=== PATIENT | female | born 1965 | race Caucasian/White ===

== ENCOUNTER → 2021-02-14 | Outpatient (CLI) | payer SELFPAY ==
--- NOTE | 2021-02-14 14:47 | Diagnostic Imaging Report ---
PROCEDURE: CT abdomen and pelvis without contrast. TECHNIQUE: Multiple contiguous axial images were obtained through the abdomen and pelvis without the use of intravenous contrast. Auto Exposure Controls were utilized during the CT exam to meet ALARA standards for radiation dose reduction. INDICATION: Ovarian mass. COMPARISON: No prior studies are available for comparison. FINDINGS: Imaging through the lung bases demonstrates an indeterminate 4 mm nodule in the subpleural location of the left lower lobe. The liver and gallbladder are unremarkable. Pancreas and spleen are unremarkable. No adrenal mass is detected. No renal calculi or hydronephrosis is detected. The aorta is nonaneurysmal. Bowel loops appear to be normal in caliber. No bowel obstruction is identified. There is a soft tissue mass-like density in the left adnexa, not well characterized due to absence of IV contrast. The soft tissue fullness measures approximately 4.0 x 3.6 cm. There appears to be some adjacent wall thickening involving the left lateral bladder wall, which does abut the mass. Right adnexa are unremarkable. The uterus is unremarkable. No free fluid is seen. Bony structures are unremarkable. IMPRESSION: Left adnexal mass, perhaps ovarian. Dedicated pelvic ultrasound would be recommended for further characterization. Consideration could be given to performance of the CT study with intravenous contrast as well. Dictated by: Dictated on workstation # [id number]
== END ==
LOC: RAD 12:45
PROVIDERS: ATTEND Pediatrics
DX: N83.8 Other noninflammatory disorders of ovary, fallopian tube and broad ligament (principal)
CPT/HCPCS: 74176

== ENCOUNTER → 2021-08-30 | Outpatient (CLI) | payer MEDICAID ==
[~2021-08-30] VITALS: Ht 162.6 cm; Wt 68.2 kg
[~2021-08-30] MED LIST: APIX5TAB PO; LISI1TAB46 PO
[2021-08-30 10:38] VITALS: BP 154/83
== END ==
LOC: SDC 10:03
PROVIDERS: ATTEND Pediatrics
DX: Z45.2 Encounter for adjustment and management of vascular access device (principal); Z95.828 Presence of other vascular implants and grafts
CPT/HCPCS: 96523

== ENCOUNTER → 2022-05-29 | Outpatient (CLI) | payer MEDICAID ==
--- NOTE | 2022-05-29 15:06 | Diagnostic Imaging Report ---
INDICATION: Cervical carcinoma. TECHNIQUE: Patient was administered 26.4 mCi technetium-99m MDP intravenously, and whole-body imaging was performed after a three-hour delay. No prior bone scans are available for comparison. FINDINGS: There is normal uptake of activity by the axial and appendicular skeleton. There is uptake by the kidneys with excretion into the urinary bladder. No suspicious foci are identified to suggest osseous metastatic disease. There is some mild uptake in the region of the greater trochanter on the right, which could be inflammatory, perhaps owing to trochanteric bursitis. No other abnormal foci are seen. IMPRESSION: No scintigraphic evidence of osseous metastatic disease. Dictated by: Dictated on workstation # [id number]
== END ==
LOC: CARD 11:00
PROVIDERS: ATTEND Internal Medicine Hematology & Oncology
DX: C53.9 Malignant neoplasm of cervix uteri, unspecified (principal); C78.6 Secondary malignant neoplasm of retroperitoneum and peritoneum
CPT/HCPCS: 78306

== ENCOUNTER 2022-07-19 15:22 | Observation (INO) | payer MEDICAID ==
[~2022-07-19] VITALS: Ht 162.5 cm; Wt 69.4 kg
[2022-07-19] MEDS ORDERED: LACTATED RINGERS 1,000 ML IV STA (16:00)
--- NOTE | 2022-07-19 16:07 | ED General ---
General Chief Complaint: General Problems/Pain Stated Complaint: SYNCOPAL EPISODE/CONSTIPATION/CONFUSION/FATIGUE Source of Information: Patient Exam Limitations: No Limitations History of Present Illness Date Seen by Provider: Jul 19, 2022 Time Seen by Provider: 15:44 Initial Comments Here with report of syncopal or near syncopal episode couple days ago but has persistent weakness/fatigue. She is currently undergoing maintenance chemotherapy for metastatic cervical cancer that seems to be responding well. She reports that she had a diarrheal illness last week as well as been dealing w ith an upper respiratory infection for a few weeks and has nasal congestion. She also reports ear fullness. Denies fever or chills. She was seen with primary care provider who did UA and there evaluating for urinary tract infection. She denies urinary tract symptoms currently. She is okay when sitting down but feels a little weaker when she stands up and believes she may be dehydrated. The episode the other day was noted during eating lunch and she did have abdominal cramping at the time and was beginning to get pale. They elected to go to the car and when she was transferring from that car to another, she started seeing spots and they later to the ground. She did not hit her head and did not have any injuries. She was much better after laying on the ground for a few minutes. She has been trying to drink fluids and feels like she may be getting caught up but then she also states that she feels behind on fluids and again is worried about dehydration. Timing/Duration: 3-4 Days Severity: Mild, Moderate Associated Systoms: No Chest Pain, No Cough, No Fever/Chills, No Nausea/Vomiting, No Shortness of Air; Syncope, Weakness Allergies and Home Medications Allergies Coded Allergies: No Known Drug Allergies (Unverified , 08/30/21) Patient Home Medication List Home Medication List Reviewed: Yes Apixaban (Eliquis) 5 Mg Tablet, 5 MG PO BID, (Reported) Entered as Reported by: HENRIQUE BELTRAN on 08/30/211720 Lisinopril/Hydrochlorothiazide (Lisinopril-Hctz 20-12.5 mg Tab) 20 Mg-12.5 Mg Tablet, 1 EACH PO DAILY, (Reported) Entered as Reported by: HENRIQUE BELTRAN on 08/30/211720 Review of Systems Review of Systems Constitutional: see HPI; No chills, No fever; weakness EENTM: ear pain (Fullness bilateral), nose congestion Respiratory: no symptoms reported Cardiovascular: see HPI Gastrointestinal: constipation, diarrhea Genitourinary: no symptoms reported Psychiatric/Neurological: See HPI; Denies Headache Past Fvbavmc-Dpgnbd-Okmtsx Hx Patient Social History Tobacco Use?: No Substance use?: No Alcohol Use?: No Past Medical History Cardiac: Yes Hypertension Cancer: Yes Cervical What Type of Treatment Did You: Chemotherapy, Radiation Physical Exam Vital Signs Vital Signs - First Documented 07/19/22 15:33 Pulse 97 B/P (MAP) 138/78 (98) Pulse Ox 100 O2 Delivery Room Air Capillary Refill : Height, Weight, BMI Height: '" Weight: lbs. oz. kg; BMI Method: General Appearance: No Apparent Distress, WD/WN HEENT: Pharynx Normal, TM Abnormal (L) (TM bulging without erythema or opacity), TM Abnormal (R) (TM bulging without erythema or opacity) Respiratory: Lungs Clear, Normal Breath Sounds Cardiovascular: No Murmur, Tachycardia Gastrointestinal: Non Tender, Soft Back: Normal Inspection, No CVA Tenderness, No Vertebral Tenderness Extremity: Non Tender, No Calf Tenderness, No Pedal Edema Neurologic/Psychiatric: Alert, Oriented x3 Progress/Results/Core Measures Suspected Sepsis SIRS Temperature: Pulse: Respiratory Rate: Laboratory Tests 07/19/22 16:14: White Blood Count 4.4 Blood Pressure / Mean: Laboratory Tests 07/19/22 16:14: Creatinine 0.80, Platelet Count 242, Total Bilirubin 0.5 Results/Orders Lab Results Laboratory Tests Test 07/19/22 16:14 Range/Units White Blood Count 4.4 4.3-11.0 10^3/uL Red Blood Count 3.15 L 3.80-5.11 10^6/uL Hemoglobin 10.3 L 11.5-16.0 g/dL Hematocrit 29 L 35-52 % Mean Corpuscular Volume 91 80-99 fL Mean Corpuscular Hemoglobin 33 25-34 pg Mean Corpuscular Hemoglobin Concent 36 32-36 g/dL Red Cell Distribution Width 14.2 10.0-14.5 % Platelet Count 242 130-400 10^3/uL Mean Platelet Volume 9.7 9.0-12.2 fL Immature Granulocyte % (Auto) 1 % Neutrophils (%) (Auto) 59 42-75 % Lymphocytes (%) (Auto) 19 12-44 % Monocytes (%) (Auto) 16 H 0-12 % Eosinophils (%) (Auto) 5 0-10 % Basophils (%) (Auto) 1 0-10 % Neutrophils # (Auto) 2.6 1.8-7.8 10^3/uL Lymphocytes # (Auto) 0.9 L 1.0-4.0 10^3/uL Monocytes # (Auto) 0.7 0.0-1.0 10^3/uL Eosinophils # (Auto) 0.2 0.0-0.3 10^3/uL Basophils # (Auto) 0.0 0.0-0.1 10^3/uL Immature Granulocyte # (Auto) 0.0 0.0-0.1 10^3/uL Sodium Level 121 *L 135-145 MMOL/L Potassium Level 3.4 L 3.6-5.0 MMOL/L Chloride Level 86 L 98-107 MMOL/L Carbon Dioxide Level 25 21-32 MMOL/L Anion Gap 10 5-14 MMOL/L Blood Urea Nitrogen 6 L 7-18 MG/DL Creatinine 0.80 0.60-1.30 MG/DL Estimat Glomerular Filtration Rate 86 BUN/Creatinine Ratio 8 Glucose Level 91 70-105 MG/DL Calcium Level 9.5 8.5-10.1 MG/DL Corrected Calcium 9.7 8.5-10.1 MG/DL Total Bilirubin 0.5 0.1-1.0 MG/DL Aspartate Amino Transf (AST/SGOT) 30 5-34 U/L Alanine Aminotransferase (ALT/SGPT) 23 0-55 U/L Alkaline Phosphatase 80 40-136 U/L C-Reactive Protein High Sensitivity 1.96 H 0.00-0.50 MG/DL Total Protein 6.3 L 6.4-8.2 GM/DL Albumin 3.8 3.2-4.5 GM/DL My Orders Orders - DELBERT JOSE MD Lactated Ringers (Lr 1000 Ml Iv Solution (07/19/22 16:00) Ed Iv/Invasive Line Start (07/19/22 16:00) Cbc With Automated Diff (07/19/22 16:00) Comprehensive Metabolic Panel (07/19/22 16:00) Hs C Reactive Protein (07/19/22 16:00) Vital Signs/I&O 07/19/22 15:33 Pulse 97 B/P (MAP) 138/78 (98) Pulse Ox 100 O2 Delivery Room Air Capillary Refill : Progress Note : Progress Note Seen and evaluated. IV via port access. We will check basic labs including CBC, CMP and CRP. LR 1 L bolus. Monitor patient. Differential includes electrolyte abnormality, dehydration 1637: CBC results noted. White count is 4.4 with hemoglobin of 10.3 and normal platelets. ANC is 2.6. Chemistry shows sodium of 121 and potassium of 3.4 with chloride of 86. BUN and creatinine are normal. Glucose is normal. LFTs are normal. CRP is slightly elevated at 1.96. She is feeling better after the liter of LR but I do have concerns about the very low sodium and chloride. She does admit to drinking a fair amount of free water and has been trying to do salt supplements. She has had hyponatremia during her therapy and and I have encouraged her to drink electrolyte containing fluids. She is also on hydrochlorothiazide. Given all of this, patient is complicated and will need monitoring. I did discuss the case with Dr. Ibarra at 1713. She accepts patient for admission, observation status for the [facility] hospitalist team. Discussed with patient and family who agree with plan. Departure Communication (Admissions) Time/Spoke to Admitting Phy: 17:13 Impression Primary Impression: Hyponatremia Disposition: ADMITTED INPATIENT Condition: Stable Admissions Decision to Admit Reason: Admit from ER (General) Decision to Admit/Date: Jul 19, 2022 Time/Decision to Admit Time: 17:13 Departure-Patient Inst. Referrals: HONEY BENJAMIN DO (PCP/Family) Primary Care Physician Add. Discharge Instructions: All discharge instructions reviewed with patient and/or family. Voiced understanding. DELBERT JOSE MD Jul 19, 2022 16:07
[2022-07-19 16:21] LABS: BASOPHILS % (AUTO) 1 % (0-10); EOSINOPHILS # (AUTO) 0.2 10^3/uL (0.0-0.3); EOSINOPHILS % (AUTO) 5 % (0-10); HEMATOCRIT 29 % (35-52); HEMOGLOBIN 10.3 g/dL (11.5-16.0); LYMPHOCYTES # (AUTO) 0.9 10^3/uL (1.0-4.0); LYMPHOCYTES % (AUTO) 19 % (12-44); MEAN CORPUSCULAR HEMOGLOBIN 33 pg (25-34); MEAN CORPUSCULAR HGB CONC 36 g/dL (32-36); MEAN CORPUSCULAR VOLUME 91 fL (80-99); MEAN PLATELET VOLUME 9.7 fL (9.0-12.2); MONOCYTES # (AUTO) 0.7 10^3/uL (0.0-1.0); MONOCYTES % (AUTO) 16 % (0-12); NEUTROPHILS # (AUTO) 2.6 10^3/uL (1.8-7.8); NEUTROPHILS % (AUTO) 59 % (42-75); PLATELET COUNT 242 10^3/uL (130-400); WHITE BLOOD COUNT 4.4 10^3/uL (4.3-11.0)
[2022-07-19 16:31] LABS: ALBUMIN 3.8 GM/DL (3.2-4.5); POTASSIUM 3.4 MMOL/L (3.6-5.0)
[2022-07-19 16:32] LABS: CALCIUM 9.5 MG/DL (8.5-10.1)
[2022-07-19 16:33] LABS: TOTAL PROTEIN 6.3 GM/DL (6.4-8.2)
[2022-07-19 16:35] LABS: BILIRUBIN,TOTAL 0.5 MG/DL (0.1-1.0)
[2022-07-19 16:37] LABS: CREATININE SERUM 0.8 MG/DL (0.60-1.30)
[2022-07-19] MEDS ORDERED: BISACODYL 10 MG SUPP (DULCOLAX) PR PRN (18:00)
[2022-07-19] MEDS ORDERED: ANTACID SUSP 30 ML UDC (MYLANTA) PO PRN (18:00)
[2022-07-19] MEDS ORDERED: MILK OF MAGNESIA 400 MG/5 ML 30 ML UDC PO PRN (18:00)
[2022-07-19] MEDS ORDERED: HYDROmorphone 2 MG/ML VIAL (DILAUDID) IV PRN (18:00)
[2022-07-19] MEDS ORDERED: diphenhydrAMINE 25 MG TAB (BENADRYL) PO PRN (18:00)
[2022-07-19] MEDS ORDERED: ONDANSETRON 4 MG/2 ML (SDV) Z0FRAN IV PRN (18:00)
[2022-07-19] MEDS ORDERED: LACTULOSE SYRUP 10GM/15ML (ENULOSE) 30ML UDC PO PRN (18:00)
[2022-07-19] MEDS ORDERED: MELATONIN 3 MG TABLET PO PRN (18:00)
[2022-07-19] MEDS ORDERED: diphenhydrAMINE 50 MG/ML INJ (BENADRYL) IVP PRN (18:00)
[2022-07-19] MEDS ORDERED: polyethylene glycoL POWDER 17 GM (MIRALAX) PACK PO PRN (18:00)
[2022-07-19] MEDS ORDERED: ACETAMINOPHEN 325 MG TABLET PO PRN (18:00)
[2022-07-19] MEDS ORDERED: CALCIUM CARBONATE 500 MG (TUMS) TAB.CHEW PO PRN (18:00)
[2022-07-19] MEDS ORDERED: ONDANSETRON 4 MG (ZOFRAN) ORAL DISSOLVE TAB PO PRN (18:00)
[2022-07-19 18:02] VITALS: BP 148/78
[2022-07-19] MEDS: NS IV 1000 ML 1,000 ML IV SCH (18:27)
--- NOTE | 2022-07-19 18:32 | History & Physical ---
History of Present Illness HPI/Chief Complaint CC: Hyponatremia HPI: This is a 56[facility]WF clinic patient of [facility] who presented to the ER with weakness and found to have hyponatremia of 121. HCTZ is on her home med list. Patient will be fluid restricted and NS IVF given and salt tablets started. She is a uterine cancer patient with mets. Source: patient Exam Limitations: no limitations Date Seen 07/19/22 Time Seen by a Provider: 19:00 Attending Physician Acosta Dugan DO PCP Admitting Physician: Joi Ibarra DO Attending Physician: Joi Ibarra DO Referring Physician Date of Admission Jul 19, 2022 at 17:42 Home Medications & Allergies Home Medications Reviewed patient Home Medication Reconciliation performed by pharmacy medication reconciliations refractory technician and/or nursing. Patients Allergies have been reviewed. Allergies Allergies Coded Allergies No Known Drug Allergies (Unverified08/30/21) Past Mkmowsu-Fbuzuf-Neobjg Hx Past Med/Social Hx: Reviewed Nursing Past Med/Soc Hx, Reviewed and Corrections made Patient Social History Marrital Status: single Employed/Student: unemployed Smoking Status: Light Tobacco Smoker Recent Foreign Travel: No Contact w/other who traveled: No Past Medical History Cardiac: Hypertension Cancer: Cervical What Type of Treatment Did You: Chemotherapy, Radiation Review of Systems Constitutional: see HPI, malaise, weakness Physical Exam Physical Exam Vital Signs Vital Signs - First Documented 07/19/22 07/19/22 15:33 18:02 Temp 36.1 Pulse 97 Resp 16 B/P (MAP) 138/78 (98) Pulse Ox 100 O2 Delivery Room Air Capillary Refill : Height, Weight, BMI Height: '" Weight: lbs. oz. kg; 26.28 BMI Method: General Appearance: No Apparent Distress, WD/WN, Chronically ill HEENT: Pharynx Normal, TM Abnormal (L) (TM bulging without erythema or opacity), TM Abnormal (R) (TM bulging without erythema or opacity) Respiratory: Lungs Clear, Normal Breath Sounds Cardiovascular: No Murmur, Tachycardia Gastrointestinal: Non Tender, Soft Back: Normal Inspection, No CVA Tenderness, No Vertebral Tenderness Extremity: Non Tender, No Calf Tenderness, No Pedal Edema Neurologic/Psychiatric: Alert, Oriented x3 Results Results/Procedures Labs Laboratory Tests 07/19/22 16:14 Patient resulted labs reviewed. Assessment/Plan Admission Diagnosis Assessment: Hyponatremia Uterine cancer with mets Smoker HTN Plan: Hold HCTZ IVF Fluid restrict Admission Status: Observation JOI IBARRA DO Jul 19, 2022 18:32
[2022-07-19] MEDS ORDERED: BENZOCAINE LOZENGES 1 EACH LOZENGE PO PRN (18:45)
[2022-07-19] MEDS: SENNOSIDES 8.6 MG (SENOKOT) TAB PO SCH (19:29)
[2022-07-19] MEDS: DOCUSATE SODIUM 100 MG (COLACE) CAP PO SCH (19:29)
[2022-07-19] MEDS: APIXABAN 5 MG (ELIQUIS) TABLET PO SCH (19:29)
[2022-07-19 19:59] VITALS: BP 147/77
[2022-07-19] MEDS ORDERED: RT-ALBUTEROL SULF 2.5 MG/3 ML PRE-MIX VIAL INH PRN ×2 (20:15→21:00)
[2022-07-19] MEDS ORDERED: GABAPENTIN 600 MG (NEURONTIN) TAB PO SCH (21:00)
[2022-07-19] MEDS: SODIUM CHLORIDE 1 GM TABLET PO SCH (21:14)
[2022-07-19] MEDS: BENZOCAINE LOZENGES 1 EACH LOZENGE PO PRN (22:26)
[2022-07-19 23:45] VITALS: BP 144/83
[2022-07-20 03:34] VITALS: BP 107/67
[2022-07-20] MEDS: BENZOCAINE LOZENGES 1 EACH LOZENGE PO PRN ×2 (03:38→10:01)
[2022-07-20 05:57] LABS: BASOPHILS % (AUTO) 0 % (0-10); EOSINOPHILS # (AUTO) 0.1 10^3/uL (0.0-0.3); EOSINOPHILS % (AUTO) 4 % (0-10); HEMATOCRIT 26 % (35-52); HEMOGLOBIN 9.1 g/dL (11.5-16.0); LYMPHOCYTES # (AUTO) 0.8 10^3/uL (1.0-4.0); LYMPHOCYTES % (AUTO) 27 % (12-44); MEAN CORPUSCULAR HEMOGLOBIN 32 pg (25-34); MEAN CORPUSCULAR HGB CONC 35 g/dL (32-36); MEAN CORPUSCULAR VOLUME 92 fL (80-99); MEAN PLATELET VOLUME 9.9 fL (9.0-12.2); MONOCYTES # (AUTO) 0.5 10^3/uL (0.0-1.0); MONOCYTES % (AUTO) 17 % (0-12); NEUTROPHILS # (AUTO) 1.6 10^3/uL (1.8-7.8); NEUTROPHILS % (AUTO) 51 % (42-75); PLATELET COUNT 232 10^3/uL (130-400); WHITE BLOOD COUNT 3.1 10^3/uL (4.3-11.0)
[2022-07-20 06:31] LABS: ALBUMIN 3.2 GM/DL (3.2-4.5); BILIRUBIN,TOTAL 0.5 MG/DL (0.1-1.0); CREATININE SERUM 0.73 MG/DL (0.60-1.30); POTASSIUM 3.3 MMOL/L (3.6-5.0); TOTAL PROTEIN 5.3 GM/DL (6.4-8.2)
[2022-07-20] MEDS: NS IV 1000 ML 1,000 ML IV SCH (07:20)
[2022-07-20 08:03] VITALS: BP 109/66
[2022-07-20] MEDS ORDERED: GABAPENTIN 300 MG (NEURONTIN) CAP PO SCH (09:00)
[2022-07-20] MEDS: SENNOSIDES 8.6 MG (SENOKOT) TAB PO SCH (09:53)
[2022-07-20] MEDS: SODIUM CHLORIDE 1 GM TABLET PO SCH (09:53)
[2022-07-20] MEDS: DOCUSATE SODIUM 100 MG (COLACE) CAP PO SCH (09:53)
[2022-07-20] MEDS: APIXABAN 5 MG (ELIQUIS) TABLET PO SCH (09:53)
--- NOTE | 2022-07-20 10:12 | Progress Note ---
Subjective Date Seen by a Provider: Jul 20, 2022 Time Seen by a Provider: 11:00 Objective Exam Last Set of Vital Signs Vital Signs Date Time Temp Pulse Resp B/P (MAP) Pulse Ox O2 Delivery O2 Flow Rate FiO2 07/20/22 08:03 36.9 86 18 109/66 (80) Room Air 07/20/22 03:34 96 Capillary Refill : I&O Intake and Output 07/20/22 00:00 Intake Total 1200 ml Balance 1200 ml Intake Oral 200 ml IV Total 1000 ml # Voids 1 Daily Weight Change No Results Lab Laboratory Tests 07/19/22 16:14: White Blood Count 4.4, Red Blood Count 3.15L, Hemoglobin 10.3L, Hematocrit 29L, Mean Corpuscular Volume 91, Mean Corpuscular Hemoglobin 33, Mean Corpuscular Hemoglobin Concent 36, Red Cell Distribution Width 14.2, Platelet Count 242, Mean Platelet Volume 9.7, Immature Granulocyte % (Auto) 1, Neutrophils (%) (Auto) 59, Lymphocytes (%) (Auto) 19, Monocytes (%) (Auto) 16H, Eosinophils (%) (Auto) 5, Basophils (%) (Auto) 1, Neutrophils # (Auto) 2.6, Lymphocytes # (Auto) 0.9L, Monocytes # (Auto) 0.7, Eosinophils # (Auto) 0.2, Basophils # (Auto) 0.0, Immature Granulocyte # (Auto) 0.0, Sodium Level 121*L, Potassium Level 3.4L, Chloride Level 86L, Carbon Dioxide Level 25, Anion Gap 10, Blood Urea Nitrogen 6L, Creatinine 0.80, Estimat Glomerular Filtration Rate 86, BUN/Creatinine Ratio 8, Glucose Level 91, Calcium Level 9.5, Corrected Calcium 9.7, Total Bilirubin 0.5, Aspartate Amino Transf (AST/SGOT) 30, Alanine Aminotransferase (ALT/SGPT) 23, Alkaline Phosphatase 80, C-Reactive Protein High Sensitivity 1.96H, Total Protein 6.3L, Albumin 3.8 07/20/22 05:25: White Blood Count 3.1L, Red Blood Count 2.82L, Hemoglobin 9.1L, Hematocrit 26L, Mean Corpuscular Volume 92, Mean Corpuscular Hemoglobin 32, Mean Corpuscular Hemoglobin Concent 35, Red Cell Distribution Width 13.8, Platelet Count 232, Mean Platelet Volume 9.9, Immature Granulocyte % (Auto) 1, Neutrophils (%) (Auto) 51, Lymphocytes (%) (Auto) 27, Monocytes (%) (Auto) 17H, Eosinophils (%) (Auto) 4, Basophils (%) (Auto) 0, Neutrophils # (Auto) 1.6L, Lymphocytes # (Auto) 0.8L, Monocytes # (Auto) 0.5, Eosinophils # (Auto) 0.1, Basophils # (Auto) 0.0, Immature Granulocyte # (Auto) 0.0 07/20/22 06:14: Sodium Level 123*L, Potassium Level 3.3L, Chloride Level 91L, Carbon Dioxide Level 21, Anion Gap 11, Blood Urea Nitrogen 6L, Creatinine 0.73, Estimat Glomerular Filtration Rate 96, BUN/Creatinine Ratio 8, Glucose Level 92, Calcium Level 9.0, Corrected Calcium 9.6, Total Bilirubin 0.5, Aspartate Amino Transf (AST/SGOT) 29, Alanine Aminotransferase (ALT/SGPT) 17, Alkaline Phosphatase 78, Total Protein 5.3L, Albumin 3.2 Assessment/Plan Assessment/Plan Assess & Plan/Chief Complaint Hyponatremia -likely salt loss from recent hx of diarrheal illness -121 admit, 123 today -continue with fluid restriction -encourage food intake - Uterine cancer with mets -on chemo, radiation Tobacco use -encourage cessation HTN -Hold HCTZ, diuretics JACI GRAVES 10, 2023 10:11
--- NOTE | 2022-07-20 10:52 | Physical Therapy Evaluation ---
PT Evaluation-General Medical Diagnosis Admission Date Jul 19, 2022 at 17:42 Medical Diagnosis: hyponatremia Onset Date: Jul 19, 2022 Therapy Diagnosis Therapy Diagnosis: generalized weakness/debility Precautions Precautions/Isolations: Fall Prevention, Standard Precautions Referral Physician: Stacey Reason for Referral: Evaluation/Treatment Medical History Pertinent Medical History: HTN, Smoking Additional Medical History metastatic cervical cancer Current History ER secondary to syncope, fatigue and constipation Reviewed History: Yes Social History Home: Single Level Current Living Status: Alone Entry Into Home: Stairs With Railing PT Steps Into Home: 2 Prior Prior Level of Function SCALE: Activities may be completed with or without assistive devices. 6-Ajkbcrosgy-vobigqp completes the activity by him/herself with no assistance from a helper. 5-Set-up or Clean-up Assistance-helper sets up or cleans up; patient completes activity. [place] assists only prior to or following the activity. 4-Supervision or Touching Assistance-helper provides verbal cues and/or to uching/steadying and/or contact guard assistance as patient completes activity. Assistance may be provided throughout the activity or intermittently. 3-Partial/Moderate Assistance-helper does LESS THAN HALF the effort. [place] lifts, holds or supports trunk or limbs, but provides less than half the effort. 2-Substantial/Maximal Assistance-helper does MORE THAN HALF the effort. [place] lifts or holds trunk or limbs and provides more than half the effort. 9-Pbxyufwxc-fgkrfo does ALL the effort. Patient does none of the effort to complete the activity. Or, the assistance of 2 or more helpers is required for the patient to complete the activity. If activity was not attempted, code reason: 7-Patient Refused. 9-Not Applicable-not attempted and the patient did not perform the activity before the current illness, exacerbation or injury. 10-Not Attempted due to Environmental Limitations-(lack of equipment, weather restraints, etc.). 88-Not Attempted due to Medical Conditions or Safety Concerns. Bed Mobility: 6 Transfers (B,C,W/C): 6 Gait: 6 Stairs: 6 Indoor Mobility (Ambulation): Independent Stairs: Independent Prior Devices Use: Other-see list below Prior Device Use: cane per patient report PT Evaluation-Current Subjective Patient agrees to PT. Dons shoes and left AFO independently Objective Patient Orientation: Person, Time, Situation ROM/Strength ROM Lower Extremities bilateral LE WFL Strength Lower Extremities left foot drop/knee flexion/extension 3+/5 grossly/right LE 4/5 grossly Integumentary/Posture Bowel Incontinence: No Bladder Incontinence: No Posture WFL Neuromuscular (Tone, Coordination, Reflexes) grossly intact Sensory Vision: Wears Glasses (contacts) Hearing: Functional Transfers Lying to Sitting/Side of Bed(Q: 6 Sit to Stand (QC): 4 Chair/Odg-xb-Pyczx Xfer(QC): 4 Toilet Transfer (QC): 4 Gait Mode of Locomotion: Walk Anticipated Mode of Locomotion: Walk Walk 10 feet (QC): 4 Walk 50 ft with 2 Turns(QC): 4 Walk 150 ft (QC): 4 Distance: 450' Gait Assistive Device: FWW Comments/Gait Description initially used cane, however unsteady/PT issued FWW with improved dynamic balance Balance Sitting Static: Normal Sitting Dynamic: Normal Standing Static: Fair Standing Dynamic: Fair Assessment/Needs Patient will benefit from skilled PT and use of FWW to address functional strength and mobility to improve current LOF to safely return to home at maximum LOF. Patient is currently SBA to CGA for safety/balance deficit Rehab Potential: Fair PT French Teacher Goals Prison Goals PT French Teacher Goals Time Frame: Jul 28, 2022 Roll Left & Right (QC): 6 Sit to Lying (QC): 6 Lying-Sitting on Side/Bed(QC): 6 Sit to Stand (QC): 6 Chair/Zwg-bg-Mokol Xfer(QC): 6 Toilet Transfer (QC): 6 Walk 10 feet (QC): 6 Walk 50ft with 2 Turns (QC): 6 Walk 150 ft (QC): 6 PT Plan Problem List Problem List: Activity Tolerance, Functional Strength, Safety, Balance, Gait, Transfer Treatment/Plan Treatment Plan: Continue Plan of Care Treatment Plan: Bed Mobility, Education, Functional Activity Cathy, Functional Strength, Gait, Safety, Therapeutic Exercise, Transfers Treatment Duration: Jul 28, 2022 Frequency: 6 times per week Estimated Hrs Per Day: .25 hour per day Patient and/or Family Agrees t: Yes Time Time In: 905 Time Out: 921 DATE: Jul 20, 2022 Total Billed Treatment Time: 16 Total Billed Treatment 1 visit EVModC 16 min SARAHI PRYOR PT Jul 20, 2022 10:52
[2022-07-20] MEDS ORDERED: KCL 20 MEQ TAB (K-DUR) PO NR (11:30)
[2022-07-20 11:44] VITALS: BP 128/84
[2022-07-20] MEDS ORDERED: LISI20TA26 PO (11:51)
[2022-07-20] MEDS ORDERED: NF-NACL1GT PO (11:51)
[2022-07-20] MEDS ORDERED: GABA300S2 PO (11:53)
--- NOTE | 2022-07-20 11:54 | Discharge Summary ---
Diagnosis/Chief Complaint Date of Admission Jul 19, 2022 at 17:42 Date of Discharge Discharge Date: Jul 20, 2022 Discharge Diagnosis Assessment: Hyponatremia Uterine cancer with mets Smoker HTN Plan: Hold HCTZ IVF Fluid restrict Discharge Summary Discharge Physical Examination Allergies: Coded Allergies: No Known Drug Allergies (Unverified , 08/30/21) Vitals & I&Os Vital Signs Date Time Temp Pulse Resp B/P (MAP) Pulse Ox O2 Delivery O2 Flow Rate FiO2 07/20/22 12:38 07/20/22 12:35 83 07/20/22 11:44 36.5 18 97 Room Air General Appearance: Alert, Oriented X3, Cooperative Respiratory: Clear to Auscultation Cardiovascular: Regular Rate Psych/Mental Status: Mental Status NL Hospital Course Was the Problem List Reviewed?: Yes Fern is a 56 yo F w/ hx of HTN and metastatic uterine cancer s/p radiation and chemo, completed in 03/03, who presented on 07/19/22 with weakness. W/u revealed she was volume down and had a sodium level of 121. IVF were administered and she was placed on a Free water restriction. Additionally her HCTZ med was held. Labs from 07/20 revealed a sodium level of 123. She no longer complained of weakness and understands plan to stop the hctz until outpatient followup, to drink less water (1200ccs/day compared to ~2400ccs), and she is agreeable to checking her electrolyte levels outpatient on Saturday, 07/24. JACI GRAVES Labs (last 24 hrs) Laboratory Tests 07/19/22 16:14: White Blood Count 4.4, Red Blood Count 3.15L, Hemoglobin 10.3L, Hematocrit 29L, Mean Corpuscular Volume 91, Mean Corpuscular Hemoglobin 33, Mean Corpuscular Hemoglobin Concent 36, Red Cell Distribution Width 14.2, Platelet Count 242, Mean Platelet Volume 9.7, Immature Granulocyte % (Auto) 1, Neutrophils (%) (Auto) 59, Lymphocytes (%) (Auto) 19, Monocytes (%) (Auto) 16H, Eosinophils (%) (Auto) 5, Basophils (%) (Auto) 1, Neutrophils # (Auto) 2.6, Lymphocytes # (Auto) 0.9L, Monocytes # (Auto) 0.7, Eosinophils # (Auto) 0.2, Basophils # (Auto) 0.0, Immature Granulocyte # (Auto) 0.0, Sodium Level 121*L, Potassium Level 3.4L, Chloride Level 86L, Carbon Dioxide Level 25, Anion Gap 10, Blood Urea Nitrogen 6L, Creatinine 0.80, Estimat Glomerular Filtration Rate 86, BUN/Creatinine Ratio 8, Glucose Level 91, Calcium Level 9.5, Corrected Calcium 9.7, Total Bilirubin 0.5, Aspartate Amino Transf (AST/SGOT) 30, Alanine Aminotransferase (ALT/SGPT) 23, Alkaline Phosphatase 80, C-Reactive Protein High Sensitivity 1.96H, Total Protein 6.3L, Albumin 3.8 07/20/22 05:25: White Blood Count 3.1L, Red Blood Count 2.82L, Hemoglobin 9.1L, Hematocrit 26L, Mean Corpuscular Volume 92, Mean Corpuscular Hemoglobin 32, Mean Corpuscular Hemoglobin Concent 35, Red Cell Distribution Width 13.8, Platelet Count 232, Mean Platelet Volume 9.9, Immature Granulocyte % (Auto) 1, Neutrophils (%) (Auto) 51, Lymphocytes (%) (Auto) 27, Monocytes (%) (Auto) 17H, Eosinophils (%) (Auto) 4, Basophils (%) (Auto) 0, Neutrophils # (Auto) 1.6L, Lymphocytes # (Auto) 0.8L, Monocytes # (Auto) 0.5, Eosinophils # (Auto) 0.1, Basophils # (Auto) 0.0, Immature Granulocyte # (Auto) 0.0 07/20/22 06:14: Sodium Level 123*L, Potassium Level 3.3L, Chloride Level 91L, Carbon Dioxide Level 21, Anion Gap 11, Blood Urea Nitrogen 6L, Creatinine 0.73, Estimat Glomerular Filtration Rate 96, BUN/Creatinine Ratio 8, Glucose Level 92, Calcium Level 9.0, Corrected Calcium 9.6, Total Bilirubin 0.5, Aspartate Amino Transf (AST/SGOT) 29, Alanine Aminotransferase (ALT/SGPT) 17, Alkaline Phosphatase 78, Total Protein 5.3L, Albumin 3.2 Pending Labs Laboratory Tests 07/19/22 16:14: White Blood Count 4.4, Red Blood Count 3.15, Hemoglobin 10.3, Hematocrit 29, Mean Corpuscular Volume 91, Mean Corpuscular Hemoglobin 33, Mean Corpuscular Hemoglobin Concent 36, Red Cell Distribution Width 14.2, Platelet Count 242, Mean Platelet Volume 9.7, Immature Granulocyte % (Auto) 1, Neutrophils (%) (Auto) 59, Lymphocytes (%) (Auto) 19, Monocytes (%) (Auto) 16, Eosinophils (%) (Auto) 5, Basophils (%) (Auto) 1, Neutrophils # (Auto) 2.6, Lymphocytes # (Auto) 0.9, Monocytes # (Auto) 0.7, Eosinophils # (Auto) 0.2, Basophils # (Auto) 0.0, Immature Granulocyte # (Auto) 0.0, Sodium Level 121, Potassium Level 3.4, Chloride Level 86, Carbon Dioxide Level 25, Anion Gap 10, Blood Urea Nitrogen 6, Creatinine 0.80, Estimat Glomerular Filtration Rate 86, BUN/Creatinine Ratio 8, Glucose Level 91, Calcium Level 9.5, Corrected Calcium 9.7, Total Bilirubin 0.5, Aspartate Amino Transf (AST/SGOT) 30, Alanine Aminotransferase (ALT/SGPT) 23, Alkaline Phosphatase 80, C-Reactive Protein High Sensitivity 1.96, Total Protein 6.3, Albumin 3.8 07/20/22 05:25: White Blood Count 3.1, Red Blood Count 2.82, Hemoglobin 9.1, Hematocrit 26, Mean Corpuscular Volume 92, Mean Corpuscular Hemoglobin 32, Mean Corpuscular Hemoglobin Concent 35, Red Cell Distribution Width 13.8, Platelet Count 232, Mean Platelet Volume 9.9, Immature Granulocyte % (Auto) 1, Neutrophils (%) (Auto) 51, Lymphocytes (%) (Auto) 27, Monocytes (%) (Auto) 17, Eosinophils (%) (Auto) 4, Basophils (%) (Auto) 0, Neutrophils # (Auto) 1.6, Lymphocytes # (Auto) 0.8, Monocytes # (Auto) 0.5, Eosinophils # (Auto) 0.1, Basophils # (Auto) 0.0, Immature Granulocyte # (Auto) 0.0 07/20/22 06:14: Sodium Level 123, Potassium Level 3.3, Chloride Level 91, Carbon Dioxide Level 21, Anion Gap 11, Blood Urea Nitrogen 6, Creatinine 0.73, Estimat Glomerular Filtration Rate 96, BUN/Creatinine Ratio 8, Glucose Level 92, Calcium Level 9.0, Corrected Calcium 9.6, Total Bilirubin 0.5, Aspartate Amino Transf (AST/SGOT) 29, Alanine Aminotransferase (ALT/SGPT) 17, Alkaline Phosphatase 78, Total Protein 5.3, Albumin 3.2 Discharge Home Medications: Active Scripts Active Gabapentin 300 Mg/6 Ml (6 Ml) Solution 300 Mg PO BID 1 pill in morning and 1 pills at night Lisinopril 20 Mg Tablet 20 Mg PO DAILY Sodium Chloride 1,000 Mg Tablet.miranda 1 Gm PO BID Reported Claritin (Loratadine) 10 Mg Tablet 10 Mg PO DAILY Benadryl Allergy (Diphenhydramine HCl) 25 Mg Tablet 50 Mg PO HS Nifedipine ER (Nifedipine) 30 Mg Tab.er.24 30 Mg PO DAILY PRN Duloxetine HCl 30 Mg Capsule.dr 30 Mg PO DAILY Omeprazole 20 Mg Capsule.dr 20 Mg PO DAILY Eliquis (Apixaban) 5 Mg Tablet 5 Mg PO BID Instructions to patient/family Please see electronic discharge instructions given to patient. JANET OLEA DO Jul 20, 2022 11:54
[2022-07-20] MEDS ORDERED: LORA10TA76 PO (11:57)
[2022-07-20] MEDS ORDERED: NIFE-25 PO (11:57)
[2022-07-20] MEDS ORDERED: DULO30CA49 PO (11:57)
[2022-07-20] MEDS ORDERED: DIPH25TA65 PO (11:57)
[2022-07-20] MEDS ORDERED: OMEP20CA18 PO (11:57)
--- NOTE | 2022-07-20 12:02 | Progress Note ---
JACI GRAVES 07/20/22 1202: Progress Note Fern is a 56 yo F w/ hx of HTN and metastatic uterine cancer s/p radiation and chemo, completed in 03/03, who presented on 07/19/22 with weakness. W/u revealed she was volume down and had a sodium level of 121. IVF were administered and she was placed on a Free water restriction. Additionally her HCTZ med was held. Labs from 07/20 revealed a sodium level of 123. She no longer complained of weakness and understands plan to stop the hctz until outpatient followup, to drink less water (1200ccs/day compared to ~2400ccs), and she is agreeable to checking her electrolyte levels outpatient on Saturday, 07/24. JANET OLEA DO 07/21/22 0616: Supervisory-Addendum Brief Verification & Attestation Participated in pt care: history, MDM, physical Personally performed: exam, history, MDM, supervision of care Care discussed with: Medical Student Procedures: n/a Results interpretation: Verified all documentation Verification and Attestation of Medical Student E/M Service A medical student performed and documented this service in my presence. I reviewed and verified all information documented by the medical student and made modifications to such information, when appropriate. I personally performed the physical exam and medical decision making. Janet Olea Jul 21, 2022,06:16 JACI GRAVES Jul 20, 2022 12:02 JANET OLEA DO Jul 21, 2022 06:16
--- NOTE | 2022-07-20 12:06 | Occupational Therapy Eval ---
OT Evaluation-General/PLF Medical Diagnosis Admission Date Jul 19, 2022 at 17:42 Medical Diagnosis: hyponatremia Onset Date: Jul 19, 2022 Therapy Diagnosis Therapy Diagnosis: weakness Precautions Precautions/Isolations: Fall Prevention, Standard Precautions Weight Bear Status Weight Bearing Restriction: Full Weight Bearing Referral Physician: Stacey Kaba Reason: Evaluation/Treatment Medical History Pertinent Medical History: HTN, Smoking Additional Medical History metastatic uterine CA, patient reports fall a few weeks ago to OT, Reports she fell at her friend's house because she did not use her L AFO and accidentally kicked her cane with her R foot during ambulation and fell. Report fx to L foot but has not pain d/t neuropathy. Reviewed History: Yes Social History Home: Single Level Current Living Status: Alone Entry Into Home: Stairs With Railing Steps Into Home: 2 ADL-Prior Level of Function SCALE: Activities may be completed with or without assistive devices. 7-Oinhsjrfvq-anyembs completes the activity by him/herself with no assistance from a helper. 5-Set-up or Clean-up Assistance-helper sets up or cleans up; patient completes activity. Gleason assists only prior to or following the activity. 4-Supervision or Touching Assistance-helper provides verbal cues and/or touching/steadying and/or contact guard assistance as patient completes activity. Assistance may be provided throughout the activity or intermittently. 3-Partial/Moderate Assistance-helper does LESS THAN HALF the effort. Gleason lifts, holds or supports trunk or limbs, but provides less than half the effort. 2-Substantial/Maximal Assistance-helper does MORE THAN HALF the effort. Gleason lifts or holds trunk or limbs and provides more than half the effort. 2-Bdvogeonm-yruwxw does ALL the effort. Patient does none of the effort to complete the activity. Or, the assistance of 2 or more helpers is required for the patient to complete the activity. If activity was not attempted, code reason: 7-Patient Refused. 9-Not Applicable-not attempted and the patient did not perform the activity bef ore the current illness, exacerbation or injury. 10-Not Attempted due to Environmental Limitations-(lack of equipment, weather r estraints, etc.). 88-Not Attempted due to Medical Conditions or Safety Concerns. Self Care: Independent Functional Cognition: Independent DME/Equipment: Bath Chair OT Current Status Subjective Up in recliner agreeable to therapy Mental Status/Objective Patient Orientation: Person, Place, Time, Situation Current Glasses/Contacts: Yes Upper Extremity ROM BUE ROM WFLS Upper Extremity Coordination WFLS, manages L LLE AFO independently Upper Extremity Strength -4/5 WFLs BUE ADL-Treatment Eating (QC): 6 Oral Hygiene (QC): 6 Shower/Bathe Self (QC): 6 Upper Body Dressing (QC): 6 Lower Body Dressing (QC): 6 On/Off Footwear (QC): 6 Toileting Hygiene (QC): 6 Education OT Patient Education: Energy conservation, Rehab process, Safety issues Teaching Recipient: Patient Teaching Methods: Demonstration, Discussion Response to Teaching: Return Demonstration OT [facility] Goals Factory Helper Goals 1=Demonstrate adherence to instructed precautions during ADL tasks. 2=Patient will verbalize/demonstrate understanding of assistive devices/modifications for ADL. 3=Patient will improve strength/tolerance for activity to enable patient to perform ADL's. OT Education/Plan Problem List/Assessment Assessment: Decreased Activ Tolerance (PT to address) Discharge Recommendations Plan/Recommendations: Discontinue OT Therapy Discharge Recommendati: Home & Family Treatment Plan/Plan of Care Treatment,Training & Education: Yes Patient would benefit from OT for education, treatment and training to promote independence in ADL's, mobility, safety and/or upper extremity function for ADL's. Plan of Care: OTHER (EVAL only) Treatment Duration: Jul 20, 2022 Frequency: 1 time per week Estimated Hrs Per Day: .25 hour per day Agreement: Yes Rehab Potential: Good Remains in recliner, all needs met Time Start Time: 09:29 Stop Time: 09:42 DATE: Jul 20, 2022 Total Time Billed (hr/min): 13 Billed Treatment Time EVL only 13 min FLORIDALMA ALEJO OT Jul 20, 2022 12:06
== END 2022-07-20 11:50 | disposition home or self-care (01) ==
LOC: EDUNIT# 15:22 → ER 15:27 → 4TH 17:42 → UNDOADMOB 17:42 → 4TH 17:50 → UNDODISOB 07-20 11:50
PROVIDERS: ADMIT Internal Medicine; ATTEND Internal Medicine
DX: E87.1 Hypo-osmolality and hyponatremia (principal); C55 Malignant neoplasm of uterus, part unspecified; C79.82 Secondary malignant neoplasm of genital organs; I10 Essential (primary) hypertension; F17.290 Nicotine dependence, other tobacco product, uncomplicated; Z79.899 Other long term (current) drug therapy; Z92.3 Personal history of irradiation
CPT/HCPCS: 36415; 80053; 85025; 86141; 99281; G0378

== ENCOUNTER 2022-07-30 23:42 | Emergency (ER) | payer MEDICAID ==
[~2022-07-30] VITALS: Ht 165.5 cm; Wt 68.0 kg
[~2022-07-30 23:42] MED LIST changes: +DIPH25TA65 PO; +DULO30CA49 PO; +GABA300S2 PO; +LISI20TA26 PO; +LORA10TA76 PO; +NF-NACL1GT PO; +NIFE-25 PO; +OMEP20CA18 PO
[2022-07-31 00:41] LABS: BASOPHILS % (AUTO) 0 % (0-10); EOSINOPHILS # (AUTO) 0.2 10^3/uL (0.0-0.3); EOSINOPHILS % (AUTO) 5 % (0-10); HEMATOCRIT 27 % (35-52); HEMOGLOBIN 9.1 g/dL (11.5-16.0); LYMPHOCYTES % (AUTO) 23 % (12-44); MEAN CORPUSCULAR HEMOGLOBIN 32 pg (25-34); MEAN CORPUSCULAR HGB CONC 34 g/dL (32-36); MEAN CORPUSCULAR VOLUME 92 fL (80-99); MEAN PLATELET VOLUME 9.2 fL (9.0-12.2); MONOCYTES # (AUTO) 0.6 10^3/uL (0.0-1.0); MONOCYTES % (AUTO) 14 % (0-12); NEUTROPHILS # (AUTO) 2.5 10^3/uL (1.8-7.8); NEUTROPHILS % (AUTO) 58 % (42-75); PLATELET COUNT 260 10^3/uL (130-400); WHITE BLOOD COUNT 4.3 10^3/uL (4.3-11.0)
[2022-07-31 00:49] LABS: ALBUMIN 3.6 GM/DL (3.2-4.5)
[2022-07-31 00:50] LABS: POTASSIUM 3.9 MMOL/L (3.6-5.0)
[2022-07-31 00:51] LABS: CALCIUM 9.3 MG/DL (8.5-10.1)
[2022-07-31 00:52] LABS: TOTAL PROTEIN 6.1 GM/DL (6.4-8.2)
[2022-07-31 00:54] LABS: BILIRUBIN,TOTAL 0.7 MG/DL (0.1-1.0)
[2022-07-31 00:56] LABS: CREATININE SERUM 0.72 MG/DL (0.60-1.30)
[2022-07-31 00:58] LABS: MAGNESIUM 1.5 MG/DL (1.6-2.4)
[2022-07-31] MEDS ORDERED: MAGNESIUM OXIDE (MAG-OX)400 MG TAB PO ONE (02:00)
[2022-07-31] MEDS ORDERED: MAGN400T50 PO (02:16)
--- NOTE | 2022-07-31 02:16 | ED General ---
General Chief Complaint: Lower Extremity Stated Complaint: AMS,LEFT LEG SWOLLEN,SODIUM LOW Nursing Triage Note: Pt presents with leg swelling. She states she has a known blood clot in left leg, but today R leg has been swelling as well. 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 Pt was recently seen here for low sodium and confusion, Pt sister with her, reports some confusion today. Source of Information: Patient, Family, Old Records Exam Limitations: No Limitations History of Present Illness Date Seen by Provider: Jul 30, 2022 Time Seen by Provider: 23:54 Initial Comments This 56 year old woman presents to the ER accompanied by her sister with concerns about increased LE edema and some mild intermittent confusion. She is also noted to be rather hypertensive. She reports feeling dizzy a couple of t imes this evening as well. She has recently been treated for hyponatremia. She was taken off of HCTZ and started on sodium supplementation. She is also currently under treatment foe LLE DVT. Allergies and Home Medications Allergies Coded Allergies: No Known Drug Allergies (Unverified , 08/30/21) Patient Home Medication List Home Medication List Reviewed: Yes Apixaban (Eliquis) 5 Mg Tablet, 5 MG PO BID, (Reported) Entered as Reported by: HENRIQUE BELTRAN on 08/30/21 1721 Diphenhydramine HCl (Benadryl Allergy) 25 Mg Tablet, 50 MG PO HS, (Reported) Entered as Reported by: HONEY AHUJA on 07/20/22 115 Duloxetine HCl (Duloxetine HCl) 30 Mg Capsule.dr, 30 MG PO DAILY, (Reported) Entered as Reported by: HONEY AHUJA on 07/20/22 1157 Gabapentin (Gabapentin) 300 Mg/6 Ml (6 Ml) Solution, 300 MG PO BID Prescribed by: JANET OLEA on 07/20/22 1153 Lisinopril (Lisinopril) 20 Mg Tablet, 20 MG PO DAILY Prescribed by: JANET OLEA on 07/20/22 1151 Loratadine (Claritin) 10 Mg Tablet, 10 MG PO DAILY, (Reported) Entered as Reported by: HONEY AHUJA on 07/20/22 1157 Magnesium Oxide (Magnesium Oxide) 400 Mg Magnesium Tablet, 400 MG PO BID Prescribed by: ROXANNA HEARD on 07/31/22 0216 Nifedipine (Nifedipine ER) 30 Mg Tab.er.24, 30 MG PO DAILY PRN for BLOOD PRESSURE, (Reported) Entered as Reported by: HONEY AHUJA on 07/20/22 1157 Omeprazole (Omeprazole) 20 Mg Capsule.dr, 20 MG PO DAILY, (Reported) Entered as Reported by: HONEY AHUJA on 07/20/22 1157 Sodium Chloride (Sodium Chloride) 1,000 Mg Tablet.miranda, 1 GM PO BID Prescribed by: JANET OLEA on 07/20/22 1151 Review of Systems Review of Systems Constitutional: no symptoms reported EENTM: no symptoms reported Respiratory: no symptoms reported Cardiovascular: see HPI Gastrointestinal: no symptoms reported Genitourinary: no symptoms reported : No Musculoskeletal: see HPI Skin: no symptoms reported Psychiatric/Neurological: See HPI Hematologic/Lymphatic: No Symptoms Reported Immunological/Allergic: no symptoms reported Past Ifrhksr-Omcmdc-Cnueym Hx Patient Social History Tobacco Use?: No Use of E-Cig and/or Vaping dev: No Substance use?: No Alcohol Use?: No Past Medical History Surgeries: Yes (Port) Respiratory: No Cardiac: Yes Hypertension Neurological: Yes (left foot drop) Gastrointestinal: No Musculoskeletal: No Endocrine: No HEENT: No Cancer: Yes Cervical Did You Recieve Any Treatments: Yes What Type of Treatment Did You: Chemotherapy, Radiation Psychosocial: No Physical Exam Vital Signs Vital Signs - First Documented 07/31/22 07/31/22 00:02 02:40 Temp 35.8 Pulse 92 Resp 16 B/P (MAP) 181/92 (121) Pulse Ox 99 O2 Delivery Room Air Capillary Refill : Less Than 3 Seconds Height, Weight, BMI Height: '" Weight: lbs. oz. kg; 24.00 BMI Method: General Appearance: No Apparent Distress, WD/WN HEENT: PERRL/EOMI, Normal ENT Inspection Neck: Normal Inspection Respiratory: Lungs Clear, Normal Breath Sounds Cardiovascular: Regular Rate, Rhythm, No Murmur, Other (bilateral LE edema) Gastrointestinal: Non Tender, Soft Extremity: Pedal Edema, Other (left leg in AFO) Neurologic/Psychiatric: Alert, Oriented x3, Normal Mood/Affect, Motor Weakness (Generalized LE weakness) Skin: Normal Color, Warm/Dry Progress/Results/Core Measures Suspected Sepsis SIRS Temperature: Pulse: 92 Respiratory Rate: 16 Laboratory Tests 07/31/22 00:28: White Blood Count 4.3 Blood Pressure 181 /92 Mean: 121 Laboratory Tests 07/31/22 00:28: Creatinine 0.72, Platelet Count 260, Total Bilirubin 0.7 Results/Orders Lab Results Laboratory Tests Test 07/31/22 00:28 Range/Units White Blood Count 4.3 4.3-11.0 10^3/uL Red Blood Count 2.89 L 3.80-5.11 10^6/uL Hemoglobin 9.1 L 11.5-16.0 g/dL Hematocrit 27 L 35-52 % Mean Corpuscular Volume 92 80-99 fL Mean Corpuscular Hemoglobin 32 25-34 pg Mean Corpuscular Hemoglobin Concent 34 32-36 g/dL Red Cell Distribution Width 13.9 10.0-14.5 % Platelet Count 260 130-400 10^3/uL Mean Platelet Volume 9.2 9.0-12.2 fL Immature Granulocyte % (Auto) 0 % Neutrophils (%) (Auto) 58 42-75 % Lymphocytes (%) (Auto) 23 12-44 % Monocytes (%) (Auto) 14 H 0-12 % Eosinophils (%) (Auto) 5 0-10 % Basophils (%) (Auto) 0 0-10 % Neutrophils # (Auto) 2.5 1.8-7.8 10^3/uL Lymphocytes # (Auto) 1.0 1.0-4.0 10^3/uL Monocytes # (Auto) 0.6 0.0-1.0 10^3/uL Eosinophils # (Auto) 0.2 0.0-0.3 10^3/uL Basophils # (Auto) 0.0 0.0-0.1 10^3/uL Immature Granulocyte # (Auto) 0.0 0.0-0.1 10^3/uL Sodium Level 128 L 135-145 MMOL/L Potassium Level 3.9 3.6-5.0 MMOL/L Chloride Level 97 L 98-107 MMOL/L Carbon Dioxide Level 19 L 21-32 MMOL/L Anion Gap 12 5-14 MMOL/L Blood Urea Nitrogen 7 7-18 MG/DL Creatinine 0.72 0.60-1.30 MG/DL Estimat Glomerular Filtration Rate 97 BUN/Creatinine Ratio 10 Glucose Level 94 70-105 MG/DL Calcium Level 9.3 8.5-10.1 MG/DL Corrected Calcium 9.6 8.5-10.1 MG/DL Magnesium Level 1.5 L 1.6-2.4 MG/DL Total Bilirubin 0.7 0.1-1.0 MG/DL Aspartate Amino Transf (AST/SGOT) 31 5-34 U/L Alanine Aminotransferase (ALT/SGPT) 22 0-55 U/L Alkaline Phosphatase 115 40-136 U/L Total Protein 6.1 L 6.4-8.2 GM/DL Albumin 3.6 3.2-4.5 GM/DL My Orders Orders - ROXANNA JACK MD Cbc With Automated Diff (07/30/22 23:54) Comprehensive Metabolic Panel (07/30/22 23:54) Magnesium (07/30/22 23:54) Ed Iv/Invasive Line Start (07/30/22 23:54) Magnesium Oxide Tablet (Mag Ox Tablet) (07/31/22 02:00) Heparin (Central Iv Flush) (Heparin (Lidya (07/31/22 02:45) Heparin (Central Iv Flush) (Heparin (Lidya (07/31/22 02:34) Medications Given in ED Vital Signs/I&O 07/31/22 07/31/22 00:02 02:40 Temp 35.8 36.0 Pulse 92 89 Resp 16 16 B/P (MAP) 181/92 (121) 181/102 Pulse Ox 99 O2 Delivery Room Air Capillary Refill : Less Than 3 Seconds Blood Pressure Mean: 121 Progress Note : Progress Note Labs were reviewed in their entirety including CBC, CMP, and magnesium. Patient was unable to produce a urine sample. Labs revealed mile hyponatremia with a sodium of 128 and mild hypomagnesemia of 1.5. Magnesium was replaced orally. Edema should be treated with more attention of elevation of the LEs. The cessation of HCTZ has likely contributed the her HTN and therefore her dizziness. I have advized increasing lisinopril to compensate. See discharge instructions for further discussion. Departure Impression Primary Impression: Hypomagnesemia Additional Impressions: Hyponatremia Lower extremity edema Hypertension Qualified Codes: I10 - Essential (primary) hypertension Dizziness Disposition: 01 HOME, SELF-CARE Condition: Stable Departure-Patient Inst. Decision time for Depature: 02:14 Referrals: HONEY BENJAMIN DO (PCP/Family) Primary Care Physician Patient Instructions: High Blood Pressure ED Add. Discharge Instructions: Increase your lisinopril to 20 mg twice daily instead of once daily. Add magnesium supplementation as prescribed. Continue all other medications as previously directed. Elevate your feet to the level of your heart as much as possible when at rest. Follow-up with Dr. Benjamin as soon as possible to review these changes and monitor your blood pressure and swelling. Return to care if you have worsening symptoms despite following these instruct ions. All discharge instructions reviewed with patient and/or family. Voiced understanding. Scripts Magnesium Oxide (Magnesium Oxide) 400 Mg Magnesium Tablet 400 MG PO BID, #20 TAB Prov: ROXANNA JACK MD 07/31/22 Copy Copies To 1: HONEY BENJAMIN JOSHUA T MD Jul 31, 2022 02:16
[2022-07-31] MEDS ORDERED: HEParin (CENTRAL IV FLUSH) 500 UNIT/5 ML SYR ONE (02:34)
[2022-07-31 02:40] VITALS: BP 181/102
[2022-07-31] MEDS ORDERED: HEParin (CENTRAL IV FLUSH) 500 UNIT/5 ML SYR IV ONE (02:45)
== END 2022-07-31 02:40 | disposition home or self-care (01) ==
LOC: EDUNIT# 23:42 → ER 23:45
DX: E83.42 Hypomagnesemia (principal); E87.1 Hypo-osmolality and hyponatremia; R42 Dizziness and giddiness; I10 Essential (primary) hypertension; I82.402 Acute embolism and thrombosis of unspecified deep veins of left lower extremity; Z79.899 Other long term (current) drug therapy
CPT/HCPCS: 36415; 80053; 83735; 85025; 99283

== ENCOUNTER 2023-04-19 17:11 | Emergency (ER) | payer SELFPAY ==
[~2023-04-19] VITALS: Ht 162 cm; Wt 54.0 kg
[~2023-04-19 17:11] MED LIST changes: -GABA300S2 PO; +GABA300S3 PO; +MAGN400T50 PO
--- NOTE | 2023-04-19 17:46 | ED GU-Female ---
General Chief Complaint: - Reproductive Stated Complaint: URINATING BLOOD, CANCER PT Nursing Triage Note: PT TO RM 9 VIA WC WITH DAUGHTER AT BEDSIDE. C/O HEMATURIA X 4 HRS. PT WAS TREATED 1 MO AGO FOR UTI. NO OTHER URINARY SYMPTOMS REPORTED. PT JUST D/C'D [employer] FOR CERVICAL CA. Source: patient, family Exam Limitations: no limitations (ROXANNA JACK MD) History of Present Illness Date Seen by Provider: Apr 19, 2023 Time Seen by Provider: 17:36 Initial Comments Fern is a 57-year-old woman who presents to the emergency room with concerns about new hematuria that just started this afternoon. She denies any dysuria associated with the hematuria. She has had some mild left lower back pain. She is anticoagulated on Eliquis due to DVT in her left leg. She has no history of prior hematuria or ureteral stones. She has recently finished a round of treatment for metastatic cervical cancer. Dr. Monzon is her oncologist. She had an incident yesterday in which she slid off the edge of her bed but denies any significant trauma. She denies any tenderness to the abdomen or pelvis on exam. She believes the blood is coming from her urine but cannot be absolutely certain of the source. Dr. Benjamin is her primary care provider at [facility]. [facility] is her preferred pharmacy. (ROXANNA JACK MD) Initial Comments PT HAS METASTATIC CERVICAL CANCER. SHE HAD BEEN TREATED WITH KEYTRUDA, BUT NO TREATMENT X 2 MONTHS. SHE HAS NOT HAD HYSTERECTOMY--STILL HAS CERVIX/UTERUS AND OVARIES. SHE STATES SHE IS NOW ON PALLIATIVE CARE. SHE HAS NOT TAKEN HER ELIQUIS TODAY. SHE HAD AN APPOINTMENT WITH HER BASEBALL PLAYER ONCOLOGIST AT ON 04/16/23 BUT DID NOT GO DUE TO ISSUES WITH INSURANCE. SHE IS NOT HAVING BLEEDING FROM OTHER SITES OR EXCESSIVE BRUISING, PETECHIAE, OR RASHES NO DIZZINESS OR SYNCOPE (YINKA FLETCHER DO) Allergies and Home Medications Allergies Coded Allergies: No Known Drug Allergies (Unverified , 08/30/21) Patient Home Medication List Home Medication List Reviewed: Yes (ROXANNA JACK MD) Apixaban (Eliquis) 5 Mg Tablet, 5 MG PO BID, (Reported) Entered as Reported by: HENRIQUE BELTRAN on 08/30/21 5390 Diphenhydramine HCl (Benadryl Allergy) 25 Mg Tablet, 50 MG PO HS, (Reported) Entered as Reported by: HONEY AHUJA on 07/20/22 115 Duloxetine HCl (Duloxetine HCl) 30 Mg Capsule.dr, 30 MG PO DAILY, (Reported) Entered as Reported by: HONEY AHUJA on 07/20/22 115 Gabapentin (Gabapentin) 300 Mg/6 Ml (6 Ml) Solution, 300 MG PO BID Prescribed by: JANET OLEA on 07/20/22 115 Lisinopril (Lisinopril) 20 Mg Tablet, 20 MG PO DAILY Prescribed by: JANET OLEA on 07/20/22 115 Loratadine (Claritin) 10 Mg Tablet, 10 MG PO DAILY, (Reported) Entered as Reported by: HONEY AHUJA on 07/20/221156 Magnesium Oxide (Magnesium Oxide) 400 Mg Magnesium Tablet, 400 MG PO BID Prescribed by: ROXANNA HEARD on 07/31/22 0216 Nifedipine (Nifedipine ER) 30 Mg Tab.er.24, 30 MG PO DAILY PRN for BLOOD PRESSURE, (Reported) Entered as Reported by: HONEY AHUJA on 07/20/22 115 Omeprazole (Omeprazole) 20 Mg Capsule.dr, 20 MG PO DAILY, (Reported) Entered as Reported by: HONEY AHUJA on 07/20/22 115 Sodium Chloride (Sodium Chloride) 1,000 Mg Tablet.miranda, 1 GM PO BID Prescribed by: JANET OLEA on 07/20/22 115 Review of Systems Review of Systems Constitutional: no symptoms reported EENTM: no symptoms reported Respiratory: no symptoms reported Cardiovascular: see HPI Gastrointestinal: no symptoms reported Genitourinary: see HPI : No Musculoskeletal: no symptoms reported Skin: no symptoms reported Psychiatric/Neurological: No Symptoms Reported Endocrine: No Symptoms Reported Hematologic/Lymphatic: See HPI (ROXANNA JACK MD) Past Rhupbcq-Oujidn-Fdkqbn Hx Patient Social History Tobacco Use?: Yes Tobacco type used: Cigarettes Use of E-Cig and/or Vaping dev: No Substance use?: No Alcohol Use?: No (ROXANNA JACK MD) Past Medical History Surgeries: Yes (Port) Tubal Ligation Respiratory: No Cardiac: Yes Deep Vein Thrombosis (Left leg), Hypertension Neurological: Yes (left foot drop) : No Genitourinary: Yes (Metastatic cervical cancer) Gastrointestinal: No Musculoskeletal: No Endocrine: No HEENT: No Cancer: Yes Cervical (With metastases) Did You Recieve Any Treatments: Yes What Type of Treatment Did You: Chemotherapy, Radiation Psychosocial: No (ROXANNA JACK MD) Physical Exam Vital Signs Vital Signs - First Documented 04/19/23 17:27 Temp 36.5 Pulse 96 Resp 20 B/P (MAP) 178/106 (130) Pulse Ox 97 O2 Delivery Room Air (YINKA FLETCHER DO) Vital Signs Capillary Refill : Less Than 3 Seconds (ROXANNA JACK MD) Height, Weight, BMI Height: '" Weight: lbs. oz. kg; 20.00 BMI Method: General Appearance: WD/WN, no apparent distress, thin HEENT: normal ENT inspection Neck: normal inspection Cardiovascular: regular rate, rhythm, no edema, no murmur Respiratory: lungs clear, normal breath sounds, no respiratory distress Gastrointestinal: normal bowel sounds, non tender, soft Extremities: normal inspection Neurologic/Psychiatric: alert, normal mood/affect, oriented x 3 Skin: normal color, warm/dry (ROXANNA JACK MD) Progress/Results/Core Measures Suspected Sepsis SIRS Temperature: Pulse: 96 Respiratory Rate: 20 Laboratory Tests 04/19/23 18:47: White Blood Count 4.4 Blood Pressure 178 /106 Mean: 130 Laboratory Tests 04/19/23 18:47: Creatinine 0.63, INR Comment 1.2, Platelet Count 282, Total Bilirubin 0.4 (ROXANNA JACK MD) SIRS (YINKA FLETCHER DO) Results/Orders Lab Results Laboratory Tests Test 04/19/23 18:00 04/19/23 18:47 Range/Units Urine Color YELLOW Urine Clarity CLEAR Urine pH 6.0 5-9 Urine Specific [place] 1.025 H 1.016-1.022 Urine Protein 2+ H NEGATIVE Urine Glucose (UA) TRACE H NEGATIVE Urine Ketones TRACE H NEGATIVE Urine Nitrite NEGATIVE NEGATIVE Urine Bilirubin 1+ H NEGATIVE Urine Urobilinogen >=8.0 < = 1.0 MG/DL Urine Leukocyte Esterase NEGATIVE NEGATIVE Urine RBC (Auto) 3+ H NEGATIVE Urine RBC >100 H /HPF Urine WBC RARE /HPF Urine Squamous Epithelial Cells RARE /HPF Urine Crystals NONE /LPF Urine Bacteria /HPF Urine Casts NONE /LPF Urine Mucus NEGATIVE /LPF Urine Culture Indicated NO White Blood Count 4.4 4.3-11.0 10^3/uL Red Blood Count 3.56 L 3.80-5.11 10^6/uL Hemoglobin 10.9 L 11.5-16.0 g/dL Hematocrit 32 L 35-52 % Mean Corpuscular Volume 91 80-99 fL Mean Corpuscular Hemoglobin 31 25-34 pg Mean Corpuscular Hemoglobin Concent 34 32-36 g/dL Red Cell Distribution Width 13.6 10.0-14.5 % Platelet Count 282 130-400 10^3/uL Mean Platelet Volume 9.3 9.0-12.2 fL Immature Granulocyte % (Auto) 0 % Neutrophils (%) (Auto) 50 42-75 % Lymphocytes (%) (Auto) 33 12-44 % Monocytes (%) (Auto) 11 0-12 % Eosinophils (%) (Auto) 6 0-10 % Basophils (%) (Auto) 1 0-10 % Neutrophils # (Auto) 2.2 1.8-7.8 10^3/uL Lymphocytes # (Auto) 1.4 1.0-4.0 10^3/uL Monocytes # (Auto) 0.5 0.0-1.0 10^3/uL Eosinophils # (Auto) 0.2 0.0-0.3 10^3/uL Basophils # (Auto) 0.0 0.0-0.1 10^3/uL Immature Granulocyte # (Auto) 0.0 0.0-0.1 10^3/uL Prothrombin Time 15.7 H 12.2-14.7 SEC INR Comment 1.2 0.8-1.4 Activated Partial Thromboplast Time 46 H 24-35 SEC Sodium Level 137 135-145 MMOL/L Potassium Level 3.6 3.6-5.0 MMOL/L Chloride Level 104 98-107 MMOL/L Carbon Dioxide Level 24 21-32 MMOL/L Anion Gap 9 5-14 MMOL/L Blood Urea Nitrogen 8 7-18 MG/DL Creatinine 0.63 0.60-1.30 MG/DL Estimat Glomerular Filtration Rate 103 BUN/Creatinine Ratio 13 Glucose Level 93 70-105 MG/DL Calcium Level 9.3 8.5-10.1 MG/DL Corrected Calcium 9.8 8.5-10.1 MG/DL Total Bilirubin 0.4 0.1-1.0 MG/DL Aspartate Amino Transf (AST/SGOT) 29 5-34 U/L Alanine Aminotransferase (ALT/SGPT) 11 0-55 U/L Alkaline Phosphatase 165 H 40-136 U/L Total Protein 6.3 L 6.4-8.2 GM/DL Albumin 3.4 3.2-4.5 GM/DL (YINKA FLETCHER DO) My Orders Orders - YINKA FLETCHER DO Ed Iv/Invasive Line Start (04/19/23 18:28) Monitor-Rhythm Ecg Trace Only (04/19/23 18:28) Ct Abd/Pelvis Wo(Kidney Stone) (04/19/23 18:28) Cbc And Automated Diff (04/19/23 18:28) Comprehensive Metabolic Panel (04/19/23 18:28) Protime With Inr (04/19/23 18:28) Partial Thromboplastin Time (04/19/23 18:28) Ed Iv/Invasive Line Start (04/19/23 18:28) Ed Iv/Invasive Line Start (04/19/23 18:28) Lactated Ringers 1,000 Ml (Lactated Ring (04/19/23 18:30) (YINKA FLETCHER DO) Medications Given in ED Current Medications Medications Dose Ordered Sig/Mable Route Start Time Stop Time Status Last Admin Dose Admin Lactated Ringer's 1,000 ml @ 0 mls/hr Q0M ONCE IV 04/19/23 18:30 04/19/23 18:31 DC 04/19/23 18:59 0 MLS/HR (YINKA FLETCHER DO) Vital Signs/I&O 04/19/23 17:27 Temp 36.5 Pulse 96 Resp 20 B/P (MAP) 178/106 (130) Pulse Ox 97 O2 Delivery Room Air (YINKA FLETCHER DO) Vital Signs/I&O Capillary Refill : Less Than 3 Seconds (ROXANNA JACK MD) Blood Pressure Mean: 130 Progress Note : Time: 18:20 Progress Note Patient was interviewed and examined. Catheter urine specimen has been obtained. Further treatment and disposition will be based off of results. Care of this patient is being transitioned to Dr. Fletcher for shift supervisor rn. Verbal repor t has been given. (ROXANNA JACK MD) Progress Note : Progress Note 1800--ASSUMED CARE OF PT AT SHIFT CHANGE, LAB PENDING 1819--UA WITH HEMATURIA, WILL ORDER LAB AND CT SCAN AT THIS TIME GIVEN: -IV FLUIDS LABS: -CBC WITH HGB 10.9, OTHERWISE NORMAL -CMP UNREMARKABLE -UA WITH >100 RBC, NO BACTERIA, NO LEUKOCYTES OR WBC, NO NITRITES CT SCAN OF ABDOMEN AND PELVIS SHOWS EXPECTED CHANGES TO FEMALE ORGANS, BUT NO ABNORMALITIES OF BLADDER OR KIDNEYS. DISCUSSED ANTICIPATED COURSE, SYMPTOMATIC TREATMENT, NEED FOR FOLLOW UP AND RETURN PRECAUTIONS REVIEWED PRIOR RECORDS INCLUDING ER VISITS, ADMITS, TESTS/PROCEDURES (YINKA FLETCHER DO) Diagnostic Imaging Comments CT ABDOMEN/PELVIS--PER RADIOLOGIST REPORT AT 1914 Comparison is made with prior exam of 02/14/2021. FINDINGS: The heart size is normal. The lung bases are clear. The distal esophagus and stomach are unremarkable. The liver is normal in size without focal lesions. Gallbladder is unremarkable. There is no biliary duct dilatation. The spleen is normal. Pancreas and adrenal glands are unremarkable. The kidneys are normal in appearance. Specifically, there is no evidence of nephrolithiasis or obstructive uropathy. There is moderate atherosclerotic calcification of the aorta which is nonaneurysmal. There is a large amount of retained fecal material likely reflecting some degree of constipation. The bowel gas pattern is otherwise nonspecific. There is no free air. There is prominence of the uterus. There is soft tissue fullness in the pelvis, however, this is not well-visualized without contrast. The bladder is grossly unremarkable. There is a faint area of decreased density in the lower uterus on the right. It is uncertain if this is within the uterus or adjacent to the uterus possibly to ovary. There is some subcutaneous inflammation along the anterior wall of the lower abdomen and pelvis which is nonspecific. There are degenerative changes in the spine. The osseous structures are otherwise unremarkable. IMPRESSION: Significant indistinct soft tissues fullness about the lower uterus. It is difficult to differentiate the pelvic structures due to a paucity of fat and some surrounding inflammatory change. The possibility of a discrete uterine or ovarian mass cannot be excluded. This could likely be better evaluated with pelvic ultrasound. No evidence of nephrolithiasis or obstructive uropathy. Moderate amount of retained fecal material likely reflecting some degree of constipation. The bowel gas pattern is otherwise nonspecific. Reviewed: Reviewed by Me (YINKA FLETCHER DO) Departure Impression Primary Impression: Hematuria Additional Impressions: Primary cervical cancer with metastasis to other site Hypertension ELIQUIS THERAPY Hx of deep venous thrombosis Mild anemia Disposition: 01 HOME, SELF-CARE Condition: Stable Departure-Patient Inst. Decision time for Depature: 19:40 (YINKA FLETCHER DO) Referrals: HONEY BENJAMIN DO (PCP/Family) Primary Care Physician Patient Instructions: Blood in the Urine (Hematuria), Adult (DC), Cervical cancer, Anemia, Possibly From Low Iron, Adult ED Add. Discharge Instructions: HOLD ELIQUIS TONIGHT, RESTART IN THE MORNING LOTS OF CLEAR LIQUIDS, ESPECIALLY WATER AND GATORADE TAKE A MULTIVITAMIN WITH IRON DAILY FOLLOW UP WITH YOUR REGULAR DR ON SATURDAY FOR FURTHER CARE FOLLOW UP WITH YOUR FISH PROCESSOR SOON POSSIBLE All discharge instructions reviewed with patient and/or family. Voiced understanding. Copy Copies To 1: DEBBIE ARELLANO Copies To 2: HONEY BENJAMIN JOSHUA T MD Apr 19, 2023 17:46 YINKA FLETCHER DO Apr 19, 2023 18:31
[2023-04-19 18:20] LABS: CLARITY,URINE CLEAR; COLOR,URINE YELLOW; GLUCOSE, URINE (UA) TRACE (NEGATIVE); KETONES,URINE TRACE (NEGATIVE); NITRITE,URINE NEGATIVE (NEGATIVE); PROTEIN,URINE 2+ (NEGATIVE)
[2023-04-19 18:21] LABS: BILIRUBIN,URINE 1+ (NEGATIVE); LEUKOCYTE ESTERASE ,URINE NEGATIVE (NEGATIVE); RBC,URINE >100 /HPF; SQUAMOUS EPITHELIAL CELL,UR RARE /HPF; WBC,URINE RARE /HPF
[2023-04-19] MEDS ORDERED: LACTATED RINGERS 1,000 ML 1,000 ML IV ONE (18:30)
[2023-04-19 19:03] LABS: BASOPHILS % (AUTO) 1 % (0-10); EOSINOPHILS # (AUTO) 0.2 10^3/uL (0.0-0.3); EOSINOPHILS % (AUTO) 6 % (0-10); HEMATOCRIT 32 % (35-52); HEMOGLOBIN 10.9 g/dL (11.5-16.0); LYMPHOCYTES # (AUTO) 1.4 10^3/uL (1.0-4.0); LYMPHOCYTES % (AUTO) 33 % (12-44); MEAN CORPUSCULAR HEMOGLOBIN 31 pg (25-34); MEAN CORPUSCULAR HGB CONC 34 g/dL (32-36); MEAN CORPUSCULAR VOLUME 91 fL (80-99); MEAN PLATELET VOLUME 9.3 fL (9.0-12.2); MONOCYTES # (AUTO) 0.5 10^3/uL (0.0-1.0); MONOCYTES % (AUTO) 11 % (0-12); NEUTROPHILS # (AUTO) 2.2 10^3/uL (1.8-7.8); NEUTROPHILS % (AUTO) 50 % (42-75); PLATELET COUNT 282 10^3/uL (130-400); WHITE BLOOD COUNT 4.4 10^3/uL (4.3-11.0)
--- NOTE | 2023-04-19 19:10 | Diagnostic Imaging Report ---
PROCEDURE: CT urinary tract, rule out kidney stone. TECHNIQUE: Multiple contiguous axial images were obtained through the abdomen and pelvis without the use of intravenous contrast. Auto Exposure Controls were utilized during the CT exam to meet ALARA standards for radiation dose reduction. INDICATION: Flank pain. Comparison is made with prior exam of 02/14/2021. FINDINGS: The heart size is normal. The lung bases are clear. The distal esophagus and stomach are unremarkable. The liver is normal in size without focal lesions. Gallbladder is unremarkable. There is no biliary duct dilatation. The spleen is normal. Pancreas and adrenal glands are unremarkable. The kidneys are normal in appearance. Specifically, there is no evidence of nephrolithiasis or obstructive uropathy. There is moderate atherosclerotic calcification of the aorta which is nonaneurysmal. There is a large amount of retained fecal material likely reflecting some degree of constipation. The bowel gas pattern is otherwise nonspecific. There is no free air. There is prominence of the uterus. There is soft tissue fullness in the pelvis, however, this is not well-visualized without contrast. The bladder is grossly unremarkable. There is a faint area of decreased density in the lower uterus on the right. It is uncertain if this is within the uterus or adjacent to the uterus possibly to ovary. There is some subcutaneous inflammation along the anterior wall of the lower abdomen and pelvis which is nonspecific. There are degenerative changes in the spine. The osseous structures are otherwise unremarkable. IMPRESSION: Significant indistinct soft tissues fullness about the lower uterus. It is difficult to differentiate the pelvic structures due to a paucity of fat and some surrounding inflammatory change. The possibility of a discrete uterine or ovarian mass cannot be excluded. This could likely be better evaluated with pelvic ultrasound. No evidence of nephrolithiasis or obstructive uropathy. Moderate amount of retained fecal material likely reflecting some degree of constipation. The bowel gas pattern is otherwise nonspecific. Dictated by: Dictated on workstation # [id number]
[2023-04-19 19:17] LABS: ALBUMIN 3.4 GM/DL (3.2-4.5); INR 1.2 (0.8-1.4); POTASSIUM 3.6 MMOL/L (3.6-5.0); PROTHROMBIN TIME PATIENT 15.7 SEC (12.2-14.7)
[2023-04-19 19:18] LABS: CALCIUM 9.3 MG/DL (8.5-10.1)
[2023-04-19 19:19] LABS: TOTAL PROTEIN 6.3 GM/DL (6.4-8.2)
[2023-04-19 19:21] LABS: BILIRUBIN,TOTAL 0.4 MG/DL (0.1-1.0)
[2023-04-19 19:23] LABS: CREATININE SERUM 0.63 MG/DL (0.60-1.30)
[2023-04-19 19:44] VITALS: BP 177/107
== END 2023-04-19 19:56 | disposition home or self-care (01) ==
LOC: EDUNIT# 17:11 → ER 17:13
DX: R31.9 Hematuria, unspecified (principal); I10 Essential (primary) hypertension; D64.9 Anemia, unspecified; I82.402 Acute embolism and thrombosis of unspecified deep veins of left lower extremity; C53.9 Malignant neoplasm of cervix uteri, unspecified; F17.210 Nicotine dependence, cigarettes, uncomplicated; Z79.01 Long term (current) use of anticoagulants
CPT/HCPCS: 36415; 74176; 80053; 81000; 85025; 85610; 85730